=== PATIENT | female | born 1995 | race African-American/Black ===

== ENCOUNTER 2022-08-03 04:51 | Emergency (ER) | payer BC ==
[~2022-08-03] VITALS: Ht 157.5 cm; Wt 81.6 kg
--- NOTE | 2022-08-03 05:10 | NUR ---
Pt from home with c/o of vomiting blood for 2 hours, headache and lower abd pain, rated 7/10. Pt states she has hx of lupus. VSS. Safety precautions in place and connected to monitor.
[2022-08-03 05:11] VITALS: BP_SYST 126
--- NOTE | 2022-08-03 05:12 | NUR ---
Patient to ER bed 06 to gown for evaluation. Side rails up. Report given to Giovana RAMÍREZ.
--- NOTE | 2022-08-03 05:20 | NUR ---
Dr. Bradford at bedside with patient.
[2022-08-03] MEDS ORDERED: DEXAMETHASONE SOD PHOSPHATE 10 MG/ML VIAL IVP ONE (06:15)
--- NOTE | 2022-08-03 06:25 | NUR ---
# 22 gauge angiocath placed to L AC. Use of asceptic technique. Opsite placed over site. Blood return noted. Flushed with 10 cc of normal saline. No evidence of infiltration noted. Patient tolerated well.
[2022-08-03 06:48] LABS: BASOPHILS # (AUTO) 0.1 K/uL (0.0-0.2); BASOPHILS % (AUTO) 1.2 % (0.0-2.0); EOSINOPHILS # (AUTO) 0.2 K/uL (0.0-0.4); EOSINOPHILS % (AUTO) 2.7 % (0.0-4.0); HEMATOCRIT 42.2 % (36-48); LYMPHOCYTES # (AUTO) 1.6 K/uL (1.0-5.5); LYMPHOCYTES % (AUTO) 25.6 % (20.5-51.5); MEAN CORPUSCULAR VOLUME 94 fL (79.0-98.0); MONOCYTES # (AUTO) 0.6 K/uL (0.0-1.0); MONOCYTES % (AUTO) 10.3 % (1.7-9.3); NEUTROPHILS # (AUTO) 3.8 K/uL (1.8-7.7); NEUTROPHILS % (AUTO) 60.2 % (40.0-70.0); PLATELET COUNT (AUTO) 284 K/uL (130-430); RED BLOOD CELL COUNT(AUTO) 4.47 MIL/uL (4.2-6.2); RED CELL DISTRIBUTION WIDTH 12.8 % (9.0-15.0); WHITE BLOOD COUNT (AUTO) 6.2 K/uL (4.8-10.8)
[2022-08-03 06:52] LABS: BILIRUBIN,URINE NEGATIVE (NEGATIVE); BLOOD, URINE NEGATIVE (NEGATIVE); CLARITY/URINE CLEAR (CLEAR); COLOR,URINE YELLOW (YELLOW); GLUCOSE,URINE NEGATIVE (NEGATIVE); KETONES,URINE NEGATIVE (NEGATIVE); LEUKOCYTE ESTERASE ,URINE NEGATIVE (NEGATIVE); NITRITE, URINE NEGATIVE (NEGATIVE); PROTEIN URINE NEGATIVE (NEGATIVE); UROBILINOGEN,URINE 0.2 (0.2-1.0)
--- NOTE | 2022-08-03 07:11 | NUR ---
Handoff report given to DESIREE Jeff. Questions/concerns answered.
--- NOTE | 2022-08-03 07:25 | NUR ---
RECEIVED PATIENT FROM FRANCIA RAMÍREZ. SPOKE WITH PATIENT AND SHE IS STABLE. GAVE PATIENT A BLANKET AND ADVISED HER OF STATUS. CURRENTLY AWAITING LAB RESULTS.
[2022-08-03 07:32] LABS: CREATININE 0.72 mg/dL (0.55-1.30); POTASSIUM 3.5 mmol/L (3.5-5.1)
[2022-08-03 07:38] LABS: ALBUMIN 3.9 g/dL (3.4-4.8); TOTAL BILIRUBIN 0.3 mg/dL (0.0-1.0)
[2022-08-03 07:40] LABS: PROTHROMBIN TIME 10.6 SECS (9.5-12.5)
[2022-08-03] MEDS ORDERED: PRO40 PO (08:01)
[2022-08-03] MEDS ORDERED: ONDA-8 TL (08:01)
[2022-08-03 08:36] VITALS: BP_SYST 128
--- NOTE | 2022-08-03 08:38 | NUR ---
Patient given written and verbal discharge instructions and verbalizes understanding. ER MD discussed with patient the results and treatment provided. Patient in stable condition. ID arm band removed. IV catheter removed intact and dressing applied, no active bleeding. Rx of protonix and zofran given. Patient educated on pain management and to follow up with PMD. Pain Scale 5/10. Opportunity for questions provided and answered. Medication side effect fact sheet provided.
== END 2022-08-03 08:36 | disposition home or self-care (01) ==
LOC: SED 04:51
DX: K92.0 Hematemesis (principal); D89.9 Disorder involving the immune mechanism, unspecified; R51.9 Headache, unspecified; R10.30 Lower abdominal pain, unspecified; Z79.899 Other long term (current) drug therapy
CPT/HCPCS: 99283; 96374; 80053; 85025; 85610; 85730; 36415; 81003; J1100